=== PATIENT | female | born 2000 | race Caucasian/White ===

== ENCOUNTER 2022-10-05 20:05 | Emergency (ER) | payer SELFPAY ==
[2022-10-05 20:38] LABS: BASOPHILS % (AUTO) 1 % (0-10); EOSINOPHILS # (AUTO) 0.1 10^3/uL (0.0-0.3); EOSINOPHILS % (AUTO) 1 % (0-10); HEMATOCRIT 43 % (35-52); LYMPHOCYTES # (AUTO) 3.1 10^3/uL (1.0-4.0); LYMPHOCYTES % (AUTO) 56 % (12-44); MEAN CORPUSCULAR HEMOGLOBIN 30 pg (25-34); MEAN CORPUSCULAR HGB CONC 33 g/dL (32-36); MEAN CORPUSCULAR VOLUME 92 fL (80-99); MEAN PLATELET VOLUME 8.8 fL (9.0-12.2); MONOCYTES # (AUTO) 0.5 10^3/uL (0.0-1.0); MONOCYTES % (AUTO) 9 % (0-12); NEUTROPHILS # (AUTO) 1.9 10^3/uL (1.8-7.8); NEUTROPHILS % (AUTO) 34 % (42-75); PLATELET COUNT 544 10^3/uL (130-400); WHITE BLOOD COUNT 5.5 10^3/uL (4.3-11.0)
[2022-10-05] MEDS ORDERED: ASPIRIN 81 MG CHEW (CHILDREN'S ASA) ONE (20:40)
--- NOTE | 2022-10-05 20:42 | ED Cardiac General ---
History of Present Illness General Chief Complaint: Chest Pain Stated Complaint: CP, HANDS TURNING BLUE, COVID POSITIVE TEST 2 DAYS Source: patient (DIFFICULT HISTORIAN), other (MALE IN ROOM GIVES SOME INFORMATION) History of Present Illness Date Seen by Provider: Oct 05, 2022 Time Seen by Provider: 20:22 Initial Comments PT ARRIVES VIA POV FROM HOME, WITH A MALE PT STATES SHE BEGAN GETTING SICK 4 DAYS AGO WITH: -LOSS OF TASTE AND SMELL -SORE THROAT -COUGH AND CONGESTION SHE DID A HOME COVID TEST 2 DAYS AGO AND IT WAS POSITIVE 2 HOURS AGO, SHE BEGAN HAVING: -LEFT UPPER CHEST PAIN AND LEFT SHOULDER PAIN -SHORTNESS OF BREATH -HANDS/FINGERS TURNING PURPLE PT SMOKED METH 2 HOURS AGO, AND SYMPTOMS BEGAN SHORTLY AFTERWARDS PT VAPES NICOTINE, SMOKES METH AND THC, DENIES IV DRUG USE. DENIES ETOH USE. SHE HAS NOT TAKEN ANYTHING FOR HER SYMPTOMS SHE IS NOT COVID VACCINATED LMP--BEGAN 1 1/2 WEEKS AGO, AND CONTINUES. NO CONTROL. PT HAS HISTORY OF SEIZURES, BUT DOES NOT TAKE ANY MEDICATIONS FOR IT OR ANY MEDICATIONS OF ANY KIND PCP: [facility] Allergies and Home Medications Allergies Coded Allergies: morphine (Verified Allergy, Unknown, 10/05/22) Patient Home Medication List Home Medication List Reviewed: Yes Review of Systems Review of Systems Constitutional: see HPI, malaise EENTM: See HPI, Nose Congestion, Throat Pain Respiratory: See HPI, Cough, Shortness of Air Cardiovascular: See HPI, Chest Pain; Denies Edema Gastrointestinal: No Symptoms Reported; Denies Abdominal Pain, Denies Nausea, Denies Vomiting Genitourinary: No Symptoms Reported Musculoskeletal: see HPI Skin: no symptoms reported Psychiatric/Neurological: See HPI Endocrine: No Symptoms Reported Hematologic/Lymphatic: No Symptoms Reported Past Cpijrlh-[id number]-[id number] Hx Patient Social History Tobacco Use?: Yes Tobacco type used: Cigarettes Smoking Status: Current Someday Smoker Use of E-Cig and/or Vaping dev: Yes E-Cig or Vaping type used: Nicotine Use of E-Cig and/or Vaping Rene: Current Everyday User Substance use?: Yes Substance type: Methamphetamine, Marijuana Substance frequency: Daily Alcohol Use?: No Past Medical History Surgeries: No Respiratory: No Cardiac: No Neurological: Yes Seizure Disorder : No Reproductive Disorders: No Genitourinary: No Gastrointestinal: No Musculoskeletal: No Endocrine: No Cancer: No Psychosocial: No Integumentary: No Blood Disorders: No Family Medical History SOCIAL HISTORY: -SMOKING--OCCASIONAL USE -ETOH--DENIES USE -DRUGS--SMOKES METH AND THC ON REGULAR BASIS, DENIES IV DRUG USE Physical Exam Vital Signs Vital Signs - First Documented 10/05/22 20:22 Pulse 93 Resp 15 B/P (MAP) 124/81 (95) Pulse Ox 100 O2 Delivery Room Air Capillary Refill : Height, Weight, BMI Height: '" Weight: lbs. oz. kg; BMI Method: General Appearance: Thin, Other (DRAMATIC, WALKS IN SLOWLY, BENT AT WAIST, HOLDING CHEST, VOICE BARELY AUDIBLE. ) HEENT: PERRL/EOMI Neck: Normal Inspection Respiratory: Normal Breath Sounds, No Accessory Muscle Use, No Respiratory Distress Cardiovascular: Regular Rate, Rhythm, No Murmur Gastrointestinal: Non Tender, Soft Extremity: No Calf Tenderness, No Pedal Edema, Other (FINGERS SLIGHTLY DUSKY. ) Neurologic/Psychiatric: Alert, Oriented x3, No Motor/Sensory Deficits, Normal Mood/Affect, mechanical project engineer II-XII Norm as Tested Skin: Normal Color, Warm/Dry Progress/Results/Core Measures Results/Orders Lab Results Laboratory Tests Test 10/05/22 20:29 10/05/22 20:31 10/05/22 20:50 Range/Units White Blood Count 5.5 4.3-11.0 10^3/uL Red Blood Count 4.63 3.80-5.11 10^6/uL Hemoglobin 14.0 11.5-16.0 g/dL Hematocrit 43 35-52 % Mean Corpuscular Volume 92 80-99 fL Mean Corpuscular Hemoglobin 30 25-34 pg Mean Corpuscular Hemoglobin Concent 33 32-36 g/dL Red Cell Distribution Width 13.2 10.0-14.5 % Platelet Count 544 H 130-400 10^3/uL Mean Platelet Volume 8.8 L 9.0-12.2 fL Immature Granulocyte % (Auto) 0 % Neutrophils (%) (Auto) 34 L 42-75 % Lymphocytes (%) (Auto) 56 H 12-44 % Monocytes (%) (Auto) 9 0-12 % Eosinophils (%) (Auto) 1 0-10 % Basophils (%) (Auto) 1 0-10 % Neutrophils # (Auto) 1.9 1.8-7.8 10^3/uL Lymphocytes # (Auto) 3.1 1.0-4.0 10^3/uL Monocytes # (Auto) 0.5 0.0-1.0 10^3/uL Eosinophils # (Auto) 0.1 0.0-0.3 10^3/uL Basophils # (Auto) 0.0 0.0-0.1 10^3/uL Immature Granulocyte # (Auto) 0.0 0.0-0.1 10^3/uL Erythrocyte Sedimentation Rate 20 0-20 MM/HR Sodium Level 144 135-145 MMOL/L Potassium Level 3.6 3.6-5.0 MMOL/L Chloride Level 105 98-107 MMOL/L Carbon Dioxide Level 25 21-32 MMOL/L Anion Gap 14 5-14 MMOL/L Blood Urea Nitrogen 9 7-18 MG/DL Creatinine 0.69 0.60-1.30 MG/DL Estimat Glomerular Filtration Rate 127 BUN/Creatinine Ratio 13 Glucose Level 51 *L 70-105 MG/DL Calcium Level 9.8 8.5-10.1 MG/DL Corrected Calcium 8.5-10.1 MG/DL Magnesium Level 2.3 1.6-2.4 MG/DL Total Bilirubin 0.2 0.1-1.0 MG/DL Aspartate Amino Transf (AST/SGOT) 20 5-34 U/L Alanine Aminotransferase (ALT/SGPT) 23 0-55 U/L Alkaline Phosphatase 89 40-136 U/L Total Creatine Kinase 153 29-168 U/L Creatine Kinase MB 2.3 <6.6 NG/ML Myoglobin 30.8 10.0-92.0 NG/ML Troponin I < 0.028 <0.028 NG/ML C-Reactive Protein High Sensitivity 0.33 0.00-0.50 MG/DL B-Type Natriuretic Peptide < 10.0 <100.0 PG/ML Total Protein 8.1 6.4-8.2 GM/DL Albumin 4.6 H 3.2-4.5 GM/DL Serum Test, Qualitative NEGATIVE NEGATIVE Serum Alcohol < 10 <10 MG/DL Influenza Type A (RT-PCR) Not Detected Not Detecte Influenza Type B (RT-PCR) Not Detected Not Detecte SARS-CoV-2 RNA (RT-PCR) Detected H Not Detecte Urine Color YELLOW Urine Clarity CLEAR Urine pH 7.0 5-9 Urine Specific [place] <=1.005 1.016-1.022 Urine Protein NEGATIVE NEGATIVE Urine Glucose (UA) NEGATIVE NEGATIVE Urine Ketones NEGATIVE NEGATIVE Urine Nitrite NEGATIVE NEGATIVE Urine Bilirubin NEGATIVE NEGATIVE Urine Urobilinogen 0.2 < = 1.0 MG/DL Urine Leukocyte Esterase TRACE H NEGATIVE Urine RBC (Auto) NEGATIVE NEGATIVE Urine RBC NONE /HPF Urine WBC 0-2 /HPF Urine Squamous Epithelial Cells 2-5 /HPF Urine Crystals NONE /LPF Urine Bacteria TRACE /HPF Urine Casts NONE /LPF Urine Mucus NEGATIVE /LPF Urine Culture Indicated NO Urine Opiates Screen NEGATIVE NEGATIVE Urine Oxycodone Screen NEGATIVE NEGATIVE Urine Methadone Screen NEGATIVE NEGATIVE Urine Propoxyphene Screen NEGATIVE NEGATIVE Urine Barbiturates Screen NEGATIVE NEGATIVE Ur Tricyclic Antidepressants Screen NEGATIVE NEGATIVE Urine Phencyclidine Screen NEGATIVE NEGATIVE Urine Amphetamines Screen POSITIVE H NEGATIVE Urine Methamphetamines Screen POSITIVE H NEGATIVE Urine Benzodiazepines Screen NEGATIVE NEGATIVE Urine Cocaine Screen NEGATIVE NEGATIVE Urine Cannabinoids Screen NEGATIVE NEGATIVE My Orders Orders - ANDREAS ROMO DO Ekg Tracing (10/05/22 20:08) Ed Iv/Invasive Line Start (10/05/22 20:22) Ekg Tracing (10/05/22 20:22) O2 (10/05/22 20:22) Monitor-Rhythm Ecg Trace Only (10/05/22 20:22) Alcohol (10/05/22 20:22) Bnp [place] (10/05/22 20:22) Cbc With Automated Diff (10/05/22 20:22) Comprehensive Metabolic Panel (10/05/22 20:22) Creatine Kinase (10/05/22 20:22) Creatine Kinase Mb (10/05/22 20:22) Hs C Reactive Protein (10/05/22 20:22) Fibrin Degradation Products (10/05/22 20:22) Drug Screen Stat (Urine) (10/05/22 20:22) Hcg,Qualitative Serum (10/05/22 20:22) Magnesium (10/05/22 20:22) Protime With Inr (10/05/22 20:22) Partial Thromboplastin Time (10/05/22 20:22) Ua Culture If Indicated (10/05/22 20:22) Erythrocyte Sedimentation Rate (10/05/22 20:22) Myoglobin Serum (10/05/22 20:22) Troponin I [place] (10/05/22 20:22) Ct Angio Chest W (R/O Pe) (10/05/22 20:22) Chest 1 View, Ap/Pa Only (10/05/22 20:22) Covid 19 Inhouse Test (10/05/22 20:36) Influenza A And B By Pcr (10/05/22 20:36) Isolation Central Supply Req (10/05/22 20:36) Aspirin Chewable Tablet (Baby Aspirin Ch (10/05/22 20:45) Iohexol Injection (Omnipaque 350 Mg/Ml 1 (10/05/22 20:45) Received Contrast (Hold Metformin- Contr (10/05/22 20:45) Ns (Ivpb) (Sodium Chloride 0.9% Ivpb Bag (10/05/22 20:45) Aspirin Chewable Tablet (Baby Aspirin Ch (10/05/22 20:40) Medications Given in ED Current Medications Medications Dose Ordered Sig/Karl Route Start Time Stop Time Status Last Admin Dose Admin Aspirin 324 mg ONCE ONCE PO 10/05/22 20:45 10/05/22 21:00 DC 10/05/22 20:41 324 MG Vital Signs/I&O 10/05/22 20:22 Pulse 93 Resp 15 B/P (MAP) 124/81 (95) Pulse Ox 100 O2 Delivery Room Air Progress Progress Note : Progress Note FULL PPE WORN COVID AND FLU TESTING DONE FOR VERIFICATION GIVEN ASPIRIN DIFFERENTIAL DX INCLUDES: ACUTE CORONARY SYNDROME; P.E. ; PNEUMONIA; EFFECTS OF METHAMPHETAMINE; COVID-RELATED SYMPTOMS ALL SYMPTOMS RESOLVED WITHOUT TREATMENT AT TIME OF DISMISSAL: NO CHEST PAIN NO SHORTNESS OF BREATH FINGERS PINK AND WARM VITALS NORMAL AND PT IS AFEBRILE, AND NO HYPOXIA NO COUGH OR DYSPNEA AT ANY TIME NO PRIOR VISITS HERE DISCUSSED TEST RESULTS, SYMPTOMATIC TREATMENT, NEED FOR QUARANTINE, NEED FOR FOLLOW UP AND RETURN PRECAUTIONS. PT IS OUTSIDE TREATMENT WINDOW FOR COVID-19 ANTIVIRAL THERAPY, AND PT DOES NOT HAVE ANY UNDERLYING MEDICAL PROBLEMS. Initial ECG Impression Date: Oct 05, 2022 Initial ECG Impression Time: :26 Initial ECG Rate: 89 Initial ECG Rhythm: Normal Sinus Initial ECG Impression: Normal Diagnostic Imaging Comments CXR--PER RADIOLOGIST REPORT AT 2117 FINDINGS: Heart size and pulmonary vasculature are normal. The lungs are clear without consolidation, pleural effusion or pneumothorax. The osseous structures are intact. IMPRESSION: No acute radiographic abnormality in the chest. CT CHEST ANGIOGRAM--PER RADIOLOGIST REPORT AT 2117 FINDINGS: Vascular: There are no filling defects within the visualized pulmonary arteries. Suboptimal evaluation secondary to streak artifact. The thoracic aorta is normal in caliber. Thyroid: The thyroid is normal. Mediastinum: Heart size is normal without significant pericardial effusion. No suspicious lymphadenopathy. Lungs and airways: The lungs are clear without consolidation, pleural effusion or pneumothorax. The airways are normal. Upper abdomen: The subphrenic structures are normal. Musculoskeletal: No suspicious osseous lesion or compression fracture. IMPRESSION: No finding of pulmonary embolus or other acute abnormality in the chest. Reviewed: Reviewed by Me Departure Impression Primary Impression: Chest pain Additional Impressions: COVID-19 virus infection Methamphetamine use Disposition: HOME, SELF-CARE Condition: Stable Departure-Patient Inst. Decision time for Depature: 21:25 Referrals: NO,LOCAL PHYSICIAN (Family) Primary Care Physician Patient Instructions: COVID-19 ED, Chest Pain (DC), Drug Misuse and Addiction (DC), Methamphetamine Add. Discharge Instructions: NO DRUGS OR ALCOHOL YOU MAY TAKE OVER THE COUNTER MUCINEX DM TWICE A DAY FOR COUGH AND CONGESTION YOU MAY TAKE TYLENOL 1 GRAM AND MOTRIN 800 MG 4 TIMES A DAY FOR PAIN OR FEVER LOTS OF CLEAR LIQUIDS--WATER, BROTH, JELLO, GATORADE FOLLOW UP WITH [facility] FOR FURTHER CARE QUARANTINE X 5 DAYS All discharge instructions reviewed with patient and/or family. Voiced understanding. ANDREAS ROMO DO Oct 05, 2022 20:42
[2022-10-05] MEDS ORDERED: NS 100 ML (IVPB) BAG IV ONE (20:45)
[2022-10-05] MEDS ORDERED: IOHEXOL 350 MG/ML 100 ML (OMNIPAQUE 350) VIAL IV ONE (20:45)
[2022-10-05] MEDS ORDERED: HOLD METFORMIN - RECEIVED CONTRAST 20 ML VIAL IV SCH (20:45)
[2022-10-05] MEDS ORDERED: ASPIRIN 81 MG CHEW (CHILDREN'S ASA) PO ONE (20:45)
[2022-10-05 20:56] LABS: BILIRUBIN,URINE NEGATIVE (NEGATIVE); CLARITY,URINE CLEAR; COLOR,URINE YELLOW; GLUCOSE, URINE (UA) NEGATIVE (NEGATIVE); KETONES,URINE NEGATIVE (NEGATIVE); LEUKOCYTE ESTERASE ,URINE TRACE (NEGATIVE); NITRITE,URINE NEGATIVE (NEGATIVE); PROTEIN,URINE NEGATIVE (NEGATIVE)
[2022-10-05 20:56] LABS: ALANINE AMINOTRANSFERASE 23 U/L (0-55); ALBUMIN 4.6 GM/DL (3.2-4.5); ALKALINE PHOSPHATASE 89 U/L (40-136); BILIRUBIN,TOTAL 0.2 MG/DL (0.1-1.0); BUN/CREATININE RATIO 13; CALCIUM 9.8 MG/DL (8.5-10.1); CARBON DIOXIDE 25 MMOL/L (21-32); CHLORIDE 105 MMOL/L (98-107); CREATINE KINASE 153 U/L (29-168); CREATININE SERUM 0.69 MG/DL (0.60-1.30); ERYTHROCYTE SEDIMENTATION RATE 20 MM/HR (0-20); GFR ESTIMATED 127; MAGNESIUM 2.3 MG/DL (1.6-2.4); POTASSIUM 3.6 MMOL/L (3.6-5.0); SODIUM 144 MMOL/L (135-145); TOTAL PROTEIN 8.1 GM/DL (6.4-8.2)
--- NOTE | 2022-10-05 20:58 | Diagnostic Imaging Report ---
EXAMINATION: Chest 1 view. HISTORY: Chest pain. COMPARISON: None available. FINDINGS: Heart size and pulmonary vasculature are normal. The lungs are clear without consolidation, pleural effusion or pneumothorax. The osseous structures are intact. IMPRESSION: No acute radiographic abnormality in the chest. Dictated by: Dictated on workstation # [id number]
[2022-10-05 21:02] LABS: BACTERIA,URINE TRACE /HPF; WBC,URINE 0-2 /HPF
[2022-10-05 21:02] LABS: CREATINE KINASE MB 2.3 NG/ML (<6.6)
[2022-10-05 21:06] LABS: AMPHETAMINE SCREEN, URINE POSITIVE (NEGATIVE); BARBITURATE SCREEN URINE NEGATIVE (NEGATIVE); BENZODIAZEPINES SCREEN URINE NEGATIVE (NEGATIVE); CANNABINOID SCREEN, URINE NEGATIVE (NEGATIVE); COCAINE SCREEN URINE NEGATIVE (NEGATIVE); METHADONE STAT NEGATIVE (NEGATIVE); OPIATE SCREEN URINE NEGATIVE (NEGATIVE); OXYCODONE STAT NEGATIVE (NEGATIVE); PROPOXYPHENE STAT NEGATIVE (NEGATIVE); TRICYCLIC ANTIDEPRESSANTS SCRE NEGATIVE (NEGATIVE)
--- NOTE | 2022-10-05 21:13 | Diagnostic Imaging Report ---
EXAMINATION: CT angiography of the chest. TECHNIQUE: Contrast enhanced thin section helical images were obtained through the chest with intravenous contrast timed for the optimal opacification of the arterial structures per CTA protocol. Post-processing, reconstructions and interpretation of angiographic images of the vessels was performed. 3D MIP reconstructions were performed and reviewed. All CT scans use one or more of the following dose optimizing techniques: automated exposure control, MA and/or KvP adjustment based on patient size and exam type or iterative reconstruction. HISTORY: CP, COVID+, cyanosis COMPARISON: None available. FINDINGS: Vascular: There are no filling defects within the visualized pulmonary arteries. Suboptimal evaluation secondary to streak artifact. The thoracic aorta is normal in caliber. Thyroid: The thyroid is normal. Mediastinum: Heart size is normal without significant pericardial effusion. No suspicious lymphadenopathy. Lungs and airways: The lungs are clear without consolidation, pleural effusion or pneumothorax. The airways are normal. Upper abdomen: The subphrenic structures are normal. Musculoskeletal: No suspicious osseous lesion or compression fracture. IMPRESSION: No finding of pulmonary embolus or other acute abnormality in the chest. Dictated by: Dictated on workstation # [id number]
[2022-10-05 21:16] LABS: GLUCOSE 51 MG/DL (70-105)
[2022-10-05 21:30] LABS: FIBRIN DEGRADATION PRODUCTS < 0.27 UG/ML (0.00-0.49); INR 0.9 (0.8-1.4); PARTIAL THROMBOPLASTIN TIME 30 SEC (24-35); PROTHROMBIN TIME PATIENT 12.9 SEC (12.2-14.7)
[2022-10-05 21:36] VITALS: BP 119/82
== END 2022-10-05 21:36 | disposition home or self-care (01) ==
LOC: ER 20:07
DX: U07.1 COVID-19 (principal); F15.90 Other stimulant use, unspecified, uncomplicated; R07.89 Other chest pain; R05.9 Cough, unspecified; R06.02 Shortness of breath; F17.210 Nicotine dependence, cigarettes, uncomplicated; F17.290 Nicotine dependence, other tobacco product, uncomplicated
CPT/HCPCS: 71045; 71275; 80053; 80306; 81000; 82550; 82553; 83735; 83874; 83880; 84484; 84703; 85025; 85379; 85610; 85652; 85730; 86141; 87636; 93005; 93041; 99284; G0480; 36415; 80320